=== PATIENT | female | born 1980 | race Caucasian/White ===

== ENCOUNTER 2017-01-17 17:40 | Inpatient (IN) ==
[2017-01-17] MEDS ORDERED: DILAUDID IV ONE ×2 (18:55→22:08)
[2017-01-17] MEDS ORDERED: NS 1,000 ML IV ONE ×3 (18:55→23:08)
[2017-01-17] MEDS ORDERED: ZOFRAN IV ONE (18:56)
--- NOTE | 2017-01-17 19:01 | PROVIDER DOCUMENTATION ---
HPI-Abdominal Pain/GI Problem - General Chief Complaint: Abdominal Pain Stated Complaint: BLOODY STOOL,NECK PAIN Time Seen by Provider: 01/17/17 18:49 Allergies/Adverse Reactions: Patient Allergies Allergy/AdvReac Type Severity Reaction Status Date / Time latex Allergy Severe dyspnea Verified 11/16/15 19:22 morphine Allergy Severe RASH Verified 06/24/16 14:29 Sulfa (Sulfonamide Allergy Severe RASH Verified 06/24/16 14:29 Antibiotics) ciprofloxacin [From Cipro] Allergy RASH Verified 06/24/16 14:29 ciprofloxacin HCl * Allergy RASH Verified 06/24/16 14:29 [From Cipro] codeine Allergy RASH Verified 06/24/16 14:29 hydrocodone Allergy SWELLING Verified 11/16/15 19:22 sulfamethoxazole Allergy RASH Verified 06/24/16 14:29 [From Bactrim] trimethoprim [From Bactrim] Allergy RASH Verified 06/24/16 14:29 Home Medications: Home Medication List Medication Instructions Recorded Confirmed Last Taken Type Alprazolam [Xanax] 1 mg PO TID #15 tablet 06/24/16 01/17/17 Unknown Rx Sertraline HCl [Zoloft] 100 mg PO HS 06/24/16 01/17/17 Unknown History - History of Present Illness-ABD Nature of Presenting Problems: Pt states that she started having loose stool last night and today is having liquid stools with bright red blood. She is having severe abdominal cramping. She states she has had this problem once in the past and was hospitalized for it. She has had some nausea but no vomiting. denies CP/dizziness. Review of Systems - Adult - REVIEW OF SYSTEMS - ADULT Constitutional: reports: no symptoms reported. denies: chills, fever, fatique, weight gain, weight loss Eyes: reports: no symptoms reported. denies: discharge, dry eyes, decreased vision, blurred vision, double vision, redness Ears, Nose, Mouth & Throat: reports: no symptoms reported. denies: ear discharge, hearing loss, tinnitus, epistaxis, sinus problem, nose pain, loose teeth, mouth/dental pain, hoarseness, throat pain, throat swelling Cardiovascular: reports: no symptoms reported. denies: chest pain, edema, heart murmur, orthopnea, palpitations, poor circulation, PND, syncope Respiratory: reports: no symptoms reported. denies: chronic cough, dyspnea on exertion, excessive sputum production, hemoptysis, pleurisy, shortness of breath , wheezing Gastrointestinal: reports: see HPI, abdominal pain, diarrhea, nausea, rectal bleeding. denies: hematemesis, constipation, difficulty swallowing, frequent heartburn, poor appetite, vomiting Genitourinary: reports: no symptoms reported. denies: dysuria, discharge, hematuria, hesitency, incontinence, urinary retention, urgency Musculoskeletal: reports: no symptoms reported. denies: bone pain, back pain, frequent leg cramps, joint pain, joint swelling, muscle aches, muscle weakness, neck pain Integumentary: reports: no symptoms reported. denies: hives, hair loss, itching , mole changes, nail changes, skin sores/ulcer, skin thickening Neurological: reports: no symptoms reported. denies: ataxia, headache/migraines , loss of balance, numbness, seizure, slurred speech, syncope, tremors Psychiatric: reports: no symptoms reported. denies: anxiety, anti-depressant use, alcohol/drug dependence, depression, emotional problems, insomnia, panic attacks, suicidal thoughts Endocrine: reports: no symptoms reported. denies: change in skin pigment, excessive sweating, goiter, heat intolerance, increased hunger, increased thirst , polyuria Hematologic/Lymphatic: reports: no symptoms reported. denies: blood clots, easy bruising, low blood count, lymphedema, swollen lymph nodes, transfusions Allergic/Immunologic: reports: no symptoms reported. denies: allergic reactions , allergic rhinitis, asthma, eczema, food allergy, frequent infections, hay fever, hives, positive PPD, urticaria All Other Systems: Reviewed and Negative Past History - Adult - PAST MEDICAL HISTORY-ADULT Review of Records: reports: Old Records Reviewed, Nursing Assessment Review, Medications Reviewed, Social history reviewed & non-contributory. Major Childhood Illnesses: reports: denies history Cardiovascular: reports: HTN Respiratory: reports: denies history Gastrointestinal: reports: GERD, GI bleed Obstetrical/Gynecological: reports: endometriosis, ovarian cysts Genitourinary: reports: kidney stones Musculoskeletal: reports: denies history Neurological: reports: denies history Psychiatric: reports: anxiety, depression Endocrine/Immune: reports: denies history Other Conditions: reports: denies history - PRIOR SURGERIES/PROCEDURES Surgical/Procedure History: reports: recent surgery (post op shoulder), cholecystectomy, hysterectomy, , other (galblader) - IMMUNIZATION STATUS Childhood Immunizations: See Nurse Assessment Flu Vaccine: NUTD - FAMILY HISTORY Family History: reviewed, not pertinent - SOCIAL HISTORY Smoking: less than 1 pack/day Provider spent 3-5 mins advising pt. on dangers of tobacco.: Discussed manners to quit use, and f/u contacts for add'l counseling. Substance Use: none/never Alcohol Use Frequency: never Living Situation: family Physical Exam-General - PHYSICAL EXAM-ADULT Initial Vital Signs Reviewed: Yes - CONSTITUTIONAL General Appearance: appears well, alert, no apparent distress - EYES Eyes: PERRL/EOMI, pale conjunctivae - HEAD, EARS, NOSE, MOUTH & THROAT HENMT: normocephalic/atraumatic, moist mucous membranes, normal ENT inspection - NECK Neck: non-tender, full range of motion - RESPIRATORY Respiratory: chest non-tender, lungs clear, normal breath sounds - CARDIOVASCULAR Cardiovascular: normal peripheral pulses, regular rate, rhythm, no edema, no gallop, no JVD, no murmur - GASTROINTESTINAL (ABDOMEN) Abdominal Exam: soft, no organomegaly, no pulsatile mass, abnormal bowel sounds , tenderness. negative: abdominal bruit - LYMPHATIC Lymphatic: no adenopathy - MUSCULOSKELETAL Back Exam: normal inspection, no CVA tenderness, no vertebral tenderness Extremity: normal range of motion, non-tender, normal gait, normal inspection, no pedal edema - SKIN Integumentary: normal color, normal turgor, warm/dry - NEUROLOGIC Neurologic: resourcing consultant II-XII nml as tested, grossly normal - PSYCHIATRIC Psych/Mental Status: normal mood/affect, normal thought content, normal thought process, oriented x 3 Progress - PLAN OF CARE/RESULTS Progress/Plan/Lab Results: Vital Signs - 8 hr 01/17/17 17:44 Temperature 98 F Pulse Rate 126 H Respiratory Rate 18 Blood Pressure 118/73 O2 Sat by Pulse Oximetry 100 Orders Category Date Time Status IV Insertion ORDERED Care 01/17/17 18:[address] ABD/PELVIS W/ IV CONT ONLY [CT] Stat Exams 01/17/17 18:53 Ordered AMYLASE [CHEM] Stat Lab 01/17/17 18:54 Ordered CBC WITH DIFF [HEME] Stat Lab 01/17/17 18:53 Ordered COMPREHENSIVE METABOLIC PANEL [CHEM] Stat Lab 01/17/17 18:53 Ordered LIPASE [CHEM] Stat Lab 01/17/17 18:54 Ordered UA NIMS W/REFLEX CULT [URINALYSIS] Stat Lab 01/17/17 18:53 Uncollected Hydromorphone [Dilaudid] Med 01/17/17 18:55 Once 1 mg IV NOW ONE Ns 1000 ml IV Bolus X1 Med 01/17/17 18:55 Ordered 0.9% Sodium Chloride Inj [Ns] 1,000 ml IV 999 mls/hr Ondansetron [Zofran] Med 01/17/17 18:56 Once 4 mg IV NOW ONE Result Diagrams: 01/17/17 19:10 01/17/17 19:10 - CT/MRI 1 CT Study: Abdomen Impression: See EMR Report CT Results: colitis - CONSULTS/PCP/HOSPITALIST Notification #1 *Consult/PCP/Hospitalist*: dr portillo Time Discussed: 22:13 (no beds at [facility]) Reason/Comments: will accept but no beds Consult Disposition: Admit #2 Consult: kiana Consult Disposition: Admit Departure - Departure Date of Disposition Decision: 01/17/17 Time of Disposition Decision: 21:44 DIAGNOSIS: Colitis, Lower GI bleed, Hypokalemia Disposition: ADMITTED INPATIENT 09 Certified Medical Emergency: Emergent Condition: Good Additional Freetext Instructions: ED Follow Up Instructions: You have been treated by a care provider in the Emergency Department. These instructions are being provided to you so you can have an understanding of how to care for yourself upon discharge. Upon discharge from the Emergency Department, you are responsible for making arrangements for follow-up care by a physician of your choice. Take all prescribed medications as directed. Return to the Emergency Department immediately for any new or worsening symptoms. You may call the Physician Referral phone number at [phone] to obtain a list of Physicians who are taking new patients. Referrals and Follow-Ups: Calvin Armenta MD [Primary Care Provider] - - Critical Care Note This patient required my direct & personal management of CC.: No Attestation - Physician/ YAAKOV Attestation Patient care was provided by Advanced Practice Provider:: Yes Advanced Practice Provider:: Torin Moffett Advanced Practice Provider documentation review:: The Mid-level provider documentation, treatment plan and medical decision making was reviewed by the physician who agrees with all treatment and medical decision making by the MLP.
[2017-01-17 19:13] LABS: MANUAL DIFF NEEDED? NO
[2017-01-17 19:24] LABS: BASO% 0.5 % (0.0-0.8); EOS# 0.03 X1000 (0.0-0.7); EOS% 0.5 % (0.0-10.0); HEMATOCRIT 38.5 % (37.0-47.0); HEMOGLOBIN 13.3 g/dL (12.0-16.0); IMM GRAN# 0.01 X1000 (0.0-0.04); IMM GRAN% 0.2 % (0.0-0.5); LYMPH# 2.09 X1000 (1.2-3.4); LYMPH% 32.9 % (20.5-51.1); MCHC 34.5 g/dL (33-37); MCV 86.7 FL (81-99); MONO# 0.38 X1000 (0.11-0.59); MPV 12.1 FL (7.4-10.4); NEUT% 59.9 % (42.2-75.2); PLT 187 X1000 (130-400); RBC 4.44 XMIL (4.2-5.4)
[2017-01-17 19:45] LABS: AMYLASE 59 U/L (20-200); LIPASE 47 U/L (13-60)
[2017-01-17 19:47] LABS: AGAP 9; ALBUMIN 4.1 g/dL (3.5-5.0); ALKALINE PHOSPHATASE 78 U/L (32-104); BUN 7 mg/dL (8-22); CALCIUM 9.5 mg/dL (8.8-10.2); CHLORIDE 99 mmol/L (98-107); COSMO 284; GOT 13 U/L (10-30); GPT 8 U/L (10-36); POTASSIUM 2.9 mmol/L (3.5-5.1); SODIUM 144 mmol/L (136-145); TCO2 36 mmol/L (25-35); TOTAL PROTEIN 6.5 g/dL (6.3-8.3)
[2017-01-17] MEDS ORDERED: POTASSIUM CHLORIDE 40 MEQ/SWI 40 MEQ/100 ML IVPB IV ONE (20:12)
[2017-01-17] MEDS ORDERED: NS 500 ML ONE (20:20)
--- NOTE | 2017-01-17 20:51 | Diag Imaging Result Doc PS360 ---
EXAM: CT ABD/PELVIS W/ IV CONT ONLY - 01/17/2017 HISTORY: blood in stool TECHNIQUE: With intravenous contrast only per request of the referring provider. Dose reduction protocol COMPARISON: 11/16/2015 FINDINGS: There are no acute abnormalities of the liver, spleen, adrenal glands, or pancreas identified. The gallbladder surgically absent. The bilateral kidneys enhance homogeneously. There is an apparent small nonobstructing stone at the upper right kidney. There is no hydronephrosis. There are no substantial enlarged lymph nodes identified. The stomach is mildly distended with fluid and debris. There is retained fluid in distal small bowel and colon. There is mild wall thickening involving some the small bowel and colon. These findings suggest mild gastroenterocolitis. There is no evidence of bowel obstruction. The appendix is surgically absent. There is no free air or abscess identified. Images of pelvis otherwise show postsurgical changes of hysterectomy. There is no abnormal pelvic mass identified. IMPRESSION: Evidence of mild generalized gastroenterocolitis. No bowel obstruction. No abscess. No free air. Apparent small nonobstructing stone in upper right kidney. No hydronephrosis. Electronically signed by Ashkan Alexander 01/17/2017 8:48 PM
[2017-01-17 21:23] LABS: BILIRUBIN URINE NEGATIVE (NEGATIVE); BLOOD URINE NEGATIVE (NEGATIVE); CLARITY CLEAR (CLEAR); COLOR YELLOW; GLUCOSE URINE NEGATIVE (NEGATIVE); LEUKOCYTES URINE TRACE (NEGATIVE); NITRITE URINE NEGATIVE (NEGATIVE); PROTEIN URINE 1+(30 mg/dL) mg/dL (NEGATIVE); UROBILINOGEN URINE NORMAL
[2017-01-17 21:26] LABS: URINE SOURCE CLEAN CATCH; URINE WBC <10 /HPF (<10)
[2017-01-17 21:27] LABS: URINE CULTURE PL NEEDED? YES; URINE EPITHELIAL CELLS <10 /HPF (<10); URINE RBC <10 /HPF (<10)
[2017-01-17] MEDS ORDERED: ROCEPHIN 1 GM/NS 1 GM/50 ML IVPB IV ONE (21:43)
[2017-01-17] MEDS ORDERED: FLAGYL 500 MG/NS 500 MG/100 ML IVPB IV ONE (21:43)
[2017-01-17] MEDS ORDERED: NS 1,000 ML ONE (22:42)
[2017-01-17] MEDS ORDERED: ZOFRAN IV PRN (23:03)
[2017-01-17] MEDS ORDERED: SODIUM CHLORIDE 0.9% INJ SCH (23:03)
[2017-01-17] MEDS: FLAGYL 500 MG/NS 500 MG/100 ML IVPB IV SCH (23:32)
[2017-01-18] MEDS: FLAGYL 500 MG/NS 500 MG/100 ML IVPB IV SCH ×4 (00:10→23:05)
[2017-01-18] MEDS: PROTONIX IV SCH ×3 (00:10→23:04)
[2017-01-18] MEDS: DILAUDID IV PRN ×6 (00:16→20:47)
[2017-01-18 05:50] LABS: MANUAL DIFF NEEDED? NO
[2017-01-18 06:12] LABS: AGAP 6; BUN 9 mg/dL (8-22); CHLORIDE 108 mmol/L (98-107); COSMO 285; POTASSIUM 3.1 mmol/L (3.5-5.1); SODIUM 144 mmol/L (136-145); TCO2 30 mmol/L (25-35)
[2017-01-18 06:18] LABS: BASO% 0.6 % (0.0-0.8); EOS# 0.04 X1000 (0.0-0.7); EOS% 0.8 % (0.0-10.0); HEMATOCRIT 32.1 % (37.0-47.0); HEMOGLOBIN 10.5 g/dL (12.0-16.0); IMM GRAN# 0.01 X1000 (0.0-0.04); IMM GRAN% 0.2 % (0.0-0.5); LYMPH# 2.67 X1000 (1.2-3.4); LYMPH% 52.6 % (20.5-51.1); MCH 29.2 PG (27-31); MCHC 32.7 g/dL (33-37); MCV 89.2 FL (81-99); MONO# 0.29 X1000 (0.11-0.59); MONO% 5.7 % (1.7-9.3); MPV 12.3 FL (7.4-10.4); NEUT% 40.1 % (42.2-75.2); PLT 143 X1000 (130-400)
[2017-01-18] MEDS ORDERED: KLOR-CON PO ONE (11:45)
[2017-01-18] MEDS ORDERED: AZACTAM 1 GM in NS 50 ML IV SCH (12:00)
--- NOTE | 2017-01-18 12:20 | HISTORY AND PHYSICAL ---
PRIMARY CARE PHYSICIAN: Dr. Calvin Armenta. CHIEF COMPLAINT: Severe abdominal cramping, bloody diarrhea, and nausea that began on 01/16/2017. HISTORY OF PRESENTING ILLNESS: This is a 36-year-old female who presented to [facility] ER with complaints of severe abdominal cramping, bloody mucus diarrhea, and nausea that began 1 day prior to arriving. She states that she had bright red mucous and diarrhea and severe abdominal cramping. Her workup in the ER showed a potassium of 2.9. A CT of the abdomen and pelvis showed an impression of evidence of mild generalized gastroenterocolitis. No bowel obstruction. No abscesses. No free air. So, she was admitted for further evaluation and treatment. PAST MEDICAL HISTORY: Polycystic ovarian syndrome, anxiety, chronic constipation, kidney stones, hypertension, GERD, and GI bleed. PAST SURGICAL HISTORY: Cholecystectomy, hysterectomy, and nasal surgery. FAMILY HISTORY: Noncontributory. SOCIAL HISTORY: She currently lives with family. Denies any tobacco, alcohol, or illicit drug use. ALLERGIES: Latex, morphine, sulfa, Cipro, codeine, hydrocodone, and sulfa drugs. HOME MEDICATIONS: She takes Xanax 1 mg p.o. t.i.d. and Zoloft 100 mg p.o. at bedtime and we will continue both of those at this time. LABORATORY DATA: Showed a white blood cell count 6.35, hemoglobin 13.3, hematocrit 38.5, platelets 187,000. It is noted this a.m. that her hemoglobin and hematocrit is down to 10.5 and 32.1. Sodium of 144, potassium 2.9, chloride 99, CO2 36, BUN of 7, creatinine 0.8, glucose of 77, amylase 59, lipase 47. It is noted she was supplemented with potassium last night and this morning her potassium is 3.1. Urinalysis is negative. Abdomen and pelvic CT showed an impression of mild generalized gastroenterocolitis. No bowel obstruction. No abscess. No free air. REVIEW OF SYSTEMS: She denied any fever, chills, blurred vision, dizziness, chest pain, coughing, shortness of breath. She was positive for severe abdominal cramping, bloody mucus diarrhea, and nausea. Denied any vomiting or burning or hurting with urination. PHYSICAL EXAMINATION: VITAL SIGNS: On arrival, she had a temperature of 98 degrees, pulse was 126, respirations 18, blood pressure 118/73, saturating 100% on room air. Currently, she has a pulse of 57 with a blood pressure of 102/65. GENERAL: This is a 36-year-old female who is lying in the bed, answers questions appropriately. HEENT: Normocephalic and atraumatic. Pupils are equal, round, reactive to light. Extraocular movements are intact. Oropharynx and nares are clear. NECK: Supple. LUNGS: Clear to auscultation bilaterally with equal lung expansion and chest wall movement. HEART: With regular rate and rhythm. No murmurs, rubs, or gallops. ABDOMEN: Soft. Bowel sounds are present x4 quadrants. There is tenderness to palpation that is generalized. EXTREMITIES: No clubbing, cyanosis, or edema. NEUROLOGICAL: The cranial nerves 2 through 12 are grossly intact. ASSESSMENT: 1. Gastroenterocolitis. 2. Hypokalemia. 3. Anemia secondary to #1. 4. Anxiety. PLAN: She was admitted to the medical unit at [facility]. Placed on telemetry. She was initially held NPO. She denies any nausea at this time and so we will give her a clear liquid diet and advance as tolerated. We are going to check a stool for C. difficile toxin, lactoferrin, occult blood screen, stool culture, and white blood cells stool. We are going to put her on Azactam 1 gram IV q.8, Flagyl 500 mg IV q.6, Dilaudid 0.5 mg IV q.3 hours p.r.n., Zofran 4 mg IV q.4 hours p.r.n., Protonix 40 mg IV q.12. She was supplemented with 40 mEq of potassium in the ER but she still remains mildly low. We will give her a p.o. potassium 40 mEq x1 now and recheck a CBC and a BMP in the a.m. Dictated by JUDI Munroe for Samuel Gutierrez MD cc: JUDI Munroe MD David Francis, MD pt examined, agree with above, if not improved may need inpt GI consult but lost likely infectious colitis APENOT MTDD
[2017-01-18] MEDS: XANAX PO SCH ×2 (13:37→16:59)
[2017-01-18] MEDS: AZACTAM 1 GM in NS 50 ML IV SCH ×2 (16:59→22:15)
[2017-01-18 20:33] LABS: OCCULT BLOOD 1 NEGATIVE (NEGATIVE)
[2017-01-18] MEDS ORDERED: ZOLOFT PO SCH (21:00)
[2017-01-18] MEDS ORDERED: ROCEPHIN 1 GM/NS 1 GM/50 ML IVPB IV SCH (22:30)
[2017-01-19] MEDS: DILAUDID IV PRN ×5 (01:41→20:37)
[2017-01-19] MEDS: FLAGYL 500 MG/NS 500 MG/100 ML IVPB IV SCH ×4 (05:06→17:44)
[2017-01-19 06:25] LABS: MANUAL DIFF NEEDED? NO
[2017-01-19] MEDS: AZACTAM 1 GM in NS 50 ML IV SCH ×2 (06:27→16:56)
[2017-01-19 06:39] LABS: BASO% 0.6 % (0.0-0.8); EOS# 0.04 X1000 (0.0-0.7); EOS% 0.7 % (0.0-10.0); HEMATOCRIT 34.1 % (37.0-47.0); HEMOGLOBIN 10.9 g/dL (12.0-16.0); IMM GRAN# 0.01 X1000 (0.0-0.04); IMM GRAN% 0.2 % (0.0-0.5); MCH 28.8 PG (27-31); MONO# 0.31 X1000 (0.11-0.59); MONO% 5.8 % (1.7-9.3); MPV 12.1 FL (7.4-10.4); NEUT% 51.7 % (42.2-75.2); PLT 146 X1000 (130-400); RBC 3.79 XMIL (4.2-5.4)
[2017-01-19 07:15] LABS: AGAP 10; BUN 5 mg/dL (8-22); CALCIUM 8.7 mg/dL (8.8-10.2); CHLORIDE 108 mmol/L (98-107); COSMO 284; POTASSIUM 3.8 mmol/L (3.5-5.1); SODIUM 144 mmol/L (136-145); TCO2 26 mmol/L (25-35)
[2017-01-19] MEDS: XANAX PO SCH ×3 (09:08→17:00)
[2017-01-19] MEDS: PROTONIX IV SCH (11:49)
[2017-01-19 15:49] VITALS: BP 99/66
--- NOTE | 2017-01-20 06:41 | DISCHARGE SUMMARY ---
ADMISSION DATE: 01/17/2017 DISCHARGE DATE: 01/19/2017 DISCHARGE DIAGNOSES: 1. Nausea and vomiting improved. Patient was able to eat an entire sandwich for supper without any complaints. 2. Abdominal cramping resolved. 3. Bloody diarrhea. The patient has been heme-negative in the hospital and has not had any witnessed bleeding. 4. Hypokalemia resolved. 5. Anemia stable. 6. Chronic anxiety certainly may be contributing to some of her current symptoms. 7. Hypokalemia resolved. Potassium 2.9 on admission and 3.8 on discharge. 8. Hypocalcemia. Will continue to take calcium at home. CONSULTATIONS: None. PROCEDURES: None. BRIEF HOSPITAL COURSE: The patient is a 36-year-old female who was admitted as on the [facility] and treated in the usual fashion. She was kept n.p.o. for the first few days and continued to improve. On discharge, she is awake and alert. She is in no distress. She is feeling better. She was able to eat a full supper without any difficulty. DISPOSITION: The patient will be discharged home. She will be discharged home on Augmentin for another 5 days as it is possible that she could have had a colitis that has been partially treated with antibiotics. Unfortunately, she is allergic to Bactrim and Cipro. TIME SPENT: Thirty-five minutes was spent in discharge planning and instructions. Patient will follow up with primary care of her choice in 1-2 weeks to reevaluate. Thankfully, she is in her stable health and she is in no distress. cc: Sánchez Herman MD
== END 2017-01-19 22:50 | disposition home or self-care (01) ==
LOC: P.ED 17:40 → SUATTDRO 22:44 → P.MEDSURG 22:44
PROVIDERS: ATTEND Family Medicine